=== PATIENT | male | born 1965 | race Caucasian/White ===

== ENCOUNTER 2017-05-03 14:08 | Inpatient (IN) | payer OTHER ==
[~2017-05-03] VITALS: Ht 172.7 cm; Wt 72.1 kg
[2017-05-03 15:21] LABS: HEMATOCRIT 32.2 % (38.0-50.0); MCH 30.1 PG (29.0-34.0); MCHC 33.2 G/DL (30.0-36.0); MCV 90.4 FL (86-99); MEAN PLAT.VOLUME 10.4 uM^3 (9.0-12.4); PLATELET COUNT 271 K/uL (156-360); RBC DIS.WIDTH-CV 13.3 % (11.8-14.6); RBC DIS.WIDTH-SD 44.2 % (39-53); RED BLOOD COUNT 3.56 M/uL (4.00-5.50); WHITE BLOOD COUNT 8.7 K/uL (4.1-10.2)
[2017-05-03 15:29] LABS: CHLORIDE 107 mEq/L (99-109); POTASSIUM 4.8 mEq/L (3.7-5.4); SODIUM 142 mEq/L (136-147)
[2017-05-03 15:30] LABS: GLUCOSE 171 mg/dL (70-99)
[2017-05-03 15:32] LABS: ANION GAP 12 MEQ/L (2-14)
[2017-05-03 15:34] LABS: GFR ESTIMATE (CALCULATED) 53 mL/min/
[2017-05-03 15:35] LABS: UREA NITROGEN (BUN) 37 mg/dL (9-23)
[2017-05-03 16:04] LABS: SAMPLE HEMOLYSIS CHECK 0; SAMPLE ICTERIC CHECK 0; SAMPLE LIPEMIA CHECK 0
[2017-05-03] MEDS ORDERED: BISA-LAX5 MG PO (16:41)
[2017-05-03] MEDS ORDERED: PROVENTIL,2.5 MG/3 M IH (16:42)
[2017-05-03] MEDS ORDERED: FERROUS SULFAT325 MG PO (16:42)
[2017-05-03] MEDS ORDERED: GLIPIZIDE5 MG PO (16:43)
[2017-05-03] MEDS ORDERED: HALOPERIDOL5 MG/1 M1 IM (16:44)
[2017-05-03] MEDS ORDERED: LISINOPRIL20 MG PO (16:45)
[2017-05-03] MEDS ORDERED: METFORMIN HCL500 MG PO (16:47)
[2017-05-03] MEDS ORDERED: THERA-M1 EACH PO (16:48)
[2017-05-03] MEDS ORDERED: VITAMIN B-1100 MG PO (16:48)
[2017-05-03] MEDS ORDERED: PAROXETINE HCL10 MG PO (16:48)
[2017-05-03] MEDS ORDERED: VALPROIC ACID250 MG PO (16:49)
[2017-05-03] MEDS ORDERED: QUETIAPINE FUM100 MG PO (16:50)
[2017-05-03] MEDS ORDERED: SIMVASTATIN40 MG PO (16:50)
[2017-05-03] MEDS ORDERED: PLAVIX75 MG PO (16:50)
[2017-05-03] MEDS ORDERED: FLOMAX0.4 MG PO (16:51)
[2017-05-03 17:33] LABS: HEMATOCRIT 31.5 % (38.0-50.0); MCH 29.7 PG (29.0-34.0); MEAN PLAT.VOLUME 10.5 uM^3 (9.0-12.4); PLATELET COUNT 244 K/uL (156-360); RBC DIS.WIDTH-CV 13.4 % (11.8-14.6); RBC DIS.WIDTH-SD 43.8 % (39-53); WHITE BLOOD COUNT 9.2 K/uL (4.1-10.2)
[2017-05-03 18:10] LABS: HDL CHOLESTEROL 34 MG/DL (Desirable>=40); LDL CHOLESTEROL 33 mg/dL (Desirable<100); NON-HDL CHOLESTEROL 49 mg/dL (Desirable<160); TOTAL CHOLESTEROL 83 mg/dL (Desirable<200); TRIGLYCERIDES 81 MG/DL (Normal: <150)
[2017-05-03 18:55] LABS: Estimated Average Glucose 189 mg/dL (70-123); HEMOGLOBIN A1c (GLYCOHEMOGLOB) 8.2 % HGB (Below 5.7)
[2017-05-03 19:12] LABS: ADD MIUA? YES; BILIRUBIN NEGATIVE; BLOOD NEGATIVE; COLOR AMBER ((YELLOW)); GLUCOSE (STRIP) NEGATIVE; KETONES 5; LEUKOCYTES MODERATE; NITRITE NEGATIVE; PROTEIN (STRIP) NEGATIVE; SPECIFIC GRAVITY 1.019 (1.000-1.030)
[2017-05-03 19:32] LABS: RED BLOOD CELLS 0-5 /HPF (0-5); WHITE BLOOD CELLS 15-20 /HPF (0-5)
[2017-05-03 19:33] LABS: BACTERIA NONE SEEN /HPF; CASTS PRESENT /LPF; CRYSTALS NONE SEEN; EPITHELIAL CELLS NONE SEEN /HPF; HYALINE CASTS 0-5 /LPF; MUCUS 2+ /LPF; UCUL ADDED? YES
[2017-05-03 19:47] VITALS: BP 128/60
[2017-05-03 22:08] LABS: POINT-OF-CARE METER ID UU13113717
[2017-05-03 23:23] LABS: POINT-OF-CARE METER ID UU13113717
[2017-05-03 23:58] VITALS: BP 172/77
[2017-05-04 04:03] VITALS: BP 184/80
[2017-05-04 04:39] LABS: POINT-OF-CARE METER ID UU13113717
[2017-05-04 05:44] LABS: METH RESISTANT S AUREUS PCR POSITIVE (NEGATIVE); PROBE CHECK PASS
[2017-05-04 06:32] VITALS: BP 148/70
[2017-05-04 06:47] LABS: POINT-OF-CARE METER ID UU14174225
[2017-05-04 12:33] LABS: POINT-OF-CARE METER ID UU13113717
[2017-05-04 12:35] VITALS: BP 81/47
[2017-05-04 13:14] VITALS: BP 158/72
[2017-05-04 16:03] LABS: ANION GAP 5 MEQ/L (2-14); CHLORIDE 104 MEQ/L (99-109); GFR ESTIMATE (CALCULATED) > 59 mL/min/; GLUCOSE 204 mg/dL (70-99); POTASSIUM 4.3 MEQ/L (3.7-5.4); SAMPLE HEMOLYSIS CHECK 0; SAMPLE ICTERIC CHECK 0; SAMPLE LIPEMIA CHECK 0; SODIUM 136 MEQ/L (136-147); UREA NITROGEN (BUN) 22 mg/dL (9-23)
[2017-05-04 18:24] LABS: POINT-OF-CARE METER ID UU13113717
[2017-05-04 19:45] VITALS: BP 149/79
[2017-05-04 21:50] LABS: POINT-OF-CARE METER ID UU13113717
[2017-05-04 23:36] LABS: POINT-OF-CARE METER ID UU14174225
[2017-05-05 00:25] VITALS: BP 155/72
[2017-05-05 04:54] LABS: POINT-OF-CARE METER ID UU14174225
[2017-05-05 08:02] VITALS: BP 138/75
== END 2017-05-05 14:10 | DRG 948 ==
LOC: EME 14:08 → EDOF 16:25 → 5SOUTH 16:25 → ENRESERV 16:27 → 5SOUTH 19:34 → ENPENDDIS 05-05 → 5SOUTH 05-05 14:10
PROVIDERS: Emergency Medicine; Hospitalist; Physician Assistant Medical
DX: R53.83 Other fatigue (principal); T43.4X5A Adverse effect of butyrophenone and thiothixene neuroleptics, initial encounter; T42.4X5A Adverse effect of benzodiazepines, initial encounter; N17.9 Acute kidney failure, unspecified; E86.0 Dehydration; I69.391 Dysphagia following cerebral infarction; R13.10 Dysphagia, unspecified; I69.398 Other sequelae of cerebral infarction; H54.7 Unspecified visual loss; R25.1 Tremor, unspecified; E11.9 Type 2 diabetes mellitus without complications; E78.5 Hyperlipidemia, unspecified; F20.9 Schizophrenia, unspecified; F31.9 Bipolar disorder, unspecified; F43.10 Post-traumatic stress disorder, unspecified; I10 Essential (primary) hypertension; N40.1 Benign prostatic hyperplasia with lower urinary tract symptoms; R33.8 Other retention of urine; F41.9 Anxiety disorder, unspecified; K59.00 Constipation, unspecified; Z87.820 Personal history of traumatic brain injury; Z79.02 Long term (current) use of antithrombotics/antiplatelets
CPT/HCPCS: 70450; 70551; 71010; 80048; 80061; 80164; 81003; 82948; 83036; 83605; 85027; 87040; 87077; 87086; 87186; 87641; 92610 GN; 93880; 94760; 99202; 99281; 99285; J1650; J1815; J7030

== ENCOUNTER → 2017-05-13 | Outpatient (CLI) | payer OTHER ==
[~2017-05-13] MED LIST: BISA-LAX5 MG PO; FERROUS SULFAT325 MG PO; FLOMAX0.4 MG PO; GLIPIZIDE5 MG PO; HALOPERIDOL5 MG/1 M1 IM; LISINOPRIL20 MG PO; METFORMIN HCL500 MG PO; PAROXETINE HCL10 MG PO; PLAVIX75 MG PO; PROVENTIL,2.5 MG/3 M IH; QUETIAPINE FUM100 MG PO; SIMVASTATIN40 MG PO; THERA-M1 EACH PO; VALPROIC ACID250 MG PO; VITAMIN B-1100 MG PO
== END | disposition designated cancer center or children's hospital (05) ==
LOC: RAD 13:26
DX: I69.991 Dysphagia following unspecified cerebrovascular disease (principal); R13.12 Dysphagia, oropharyngeal phase
CPT/HCPCS: 74230; 92611 GN; G8996 GN CK; G8997 GN CK; G8998 GN CK

== ENCOUNTER → 2017-07-28 | Outpatient (CLI) | payer OTHER | END | disposition designated cancer center or children's hospital (05) | LOC: AMB 10:11 | PROC: 0HJPXZZ Inspection of Skin, External Approach (ICD-10-PCS; principal; 2017-07-28) | DX: L05.92 Pilonidal sinus without abscess (principal); Z74.01 Bed confinement status | CPT/HCPCS: 99211 ==

== ENCOUNTER 2017-08-04 07:50 | Day surgery (SDC) | payer OTHER ==
[~2017-08-04] VITALS: Ht 172.7 cm; Wt 65.7 kg
[~2017-08-04 07:50] MED LIST changes: -FERROUS SULFAT325 MG PO; +GLUCOPHAGE500 MG GT; +IRON325 M1 PO; +KRISTALOSE10 GM PO; -LISINOPRIL20 MG PO; +METFORMIN HCL500 MG GT; -METFORMIN HCL500 MG PO; +MOTRIN400 MG GT; +PLAVIX75 MG GT; -PLAVIX75 MG PO; +SIMVASTATIN40 MG GT; -SIMVASTATIN40 MG PO; +STOOL SOFTENER100 M1 GT; +VALPROIC ACID250 MG GT; -VALPROIC ACID250 MG PO; +ZESTRIL10 MG GT; +ZYPREXA10 MG GT
[2017-08-04 08:54] VITALS: BP 106/58
[2017-08-04 09:20] LABS: CHLORIDE 106 MEQ/L (99-109); CREATININE 0.9 MG/DL (0.6-1.3); GFR ESTIMATE (CALCULATED) > 59 mL/min/ (58.99-99999); GLUCOSE 99 mg/dL (70-99); POTASSIUM 4.8 MEQ/L (3.7-5.4); SODIUM 144 MEQ/L (136-147); UREA NITROGEN (BUN) 23 mg/dL (9-23)
[2017-08-04 12:05] VITALS: BP 122/73
[2017-08-04 12:50] VITALS: BP 115/63
[2017-08-05] MEDS ORDERED: LEVAQUIN750 MG GT (14:33)
[2017-08-05] MEDS ORDERED: HALOPERIDOL5 MG/1 M1 IM (14:35)
== END 2017-08-04 13:05 | disposition designated cancer center or children's hospital (05) ==
LOC: SDC 07:50
PROVIDERS: Surgery
PROC: 0DH63UZ Insertion of Feeding Device into Stomach, Percutaneous Approach (ICD-10-PCS; principal; 2017-08-04)
DX: I69.391 Dysphagia following cerebral infarction (principal); R13.10 Dysphagia, unspecified; E11.9 Type 2 diabetes mellitus without complications; Z79.84 Long term (current) use of oral hypoglycemic drugs; E78.5 Hyperlipidemia, unspecified; Z88.5 Allergy status to narcotic agent
CPT/HCPCS: 80048; 82948; 87641; 93005; J0690; J2405; J2765; J3010

== ENCOUNTER 2017-08-05 11:43 | Inpatient (IN) | payer OTHER ==
[~2017-08-05] VITALS: Ht 172.7 cm; Wt 69.0 kg
[2017-08-05 12:19] LABS: BASOPHIL (%) 0 % (0-1); EOSINOPHIL (%) 0.3 % (0-5); HEMATOCRIT 30.9 % (38.0-50.0); HEMOGLOBIN 10.5 G/DL (12.5-16.6); IMMATURE GRANULOCYTE (%) 0.4 % (0.0-0.7); LYMPHOCYTE (%) 19.8 % (15-42); LYMPHOCYTE COUNT 1.5 K/uL (1.0-2.8); MCH 30.3 PG (29.0-34.0); MCV 89.3 FL (86-99); MONOCYTE (%) 9.9 % (3-12); MONOCYTE COUNT 0.7 K/uL (0-0.8); NEUTROPHIL (%) 69.6 % (45-76); NEUTROPHIL COUNT 5.2 K/uL (1.8-6.4); PLATELET COUNT 170 K/uL (156-360); RBC DIS.WIDTH-CV 14.8 % (11.8-14.6); RBC DIS.WIDTH-SD 47.4 % (39-53); RED BLOOD COUNT 3.46 M/uL (4.00-5.50); WHITE BLOOD COUNT 7.5 K/uL (4.1-10.2)
[2017-08-05 12:28] LABS: ALBUMIN 3.2 g/dL (3.2-4.8); CHLORIDE 104 mEq/L (99-109); POTASSIUM 4.9 mEq/L (3.7-5.4); SODIUM 141 mEq/L (136-147)
[2017-08-05 12:30] LABS: GLUCOSE 113 mg/dL (70-99); TOTAL PROTEIN 6.3 g/dL (6.4-8.3)
[2017-08-05 12:32] LABS: TOTAL BILIRUBIN 0.3 mg/dL (0.0-1.0)
[2017-08-05 12:34] LABS: ALKALINE PHOSPHATASE 54 IU/L (3-129); GFR ESTIMATE (CALCULATED) 36 mL/min/ (58.99-99999)
[2017-08-05 12:36] LABS: AST (GOT) 15 IU/L (2-34)
[2017-08-05 12:37] LABS: ALT (GPT) 13 IU/L (3-49); LIPASE 19 U/L (1.0-51.0)
[2017-08-05 12:38] LABS: INTER. NORMALIZED RATIO 1.1
[2017-08-05 12:39] LABS: CREATININE 2.1 mg/dL (0.6-1.3); UREA NITROGEN (BUN) 42 mg/dL (9-23)
[2017-08-05 12:41] LABS: PTT 26.7 SEC (25-37); TROP-I INTERPRETATION NEGATIVE; TROPONIN-I < 0.01 ng/mL (0.0-0.30)
[2017-08-05] MEDS ORDERED: LEVAQUIN750 MG GT (14:33)
[2017-08-05] MEDS ORDERED: HALOPERIDOL5 MG/1 M1 IM (14:35)
[2017-08-05 16:34] LABS: APPEARANCE CLEAR ((CLEAR)); BILIRUBIN NEGATIVE; BLOOD NEGATIVE; COLOR YELLOW ((YELLOW)); GLUCOSE (STRIP) NEGATIVE; KETONES 5; LEUKOCYTES NEGATIVE; NITRITE NEGATIVE; PROTEIN (STRIP) NEGATIVE; SPECIFIC GRAVITY 1.021 (1.000-1.030); UCUL ADDED? NO
[2017-08-05 20:40] VITALS: BP 116/70
[2017-08-06 06:43] LABS: HEMATOCRIT 27.5 % (38.0-50.0); HEMOGLOBIN 8.9 G/DL (12.5-16.6); MCHC 32.4 G/DL (30.0-36.0); MCV 89.6 FL (86-99); PLATELET COUNT 166 K/uL (156-360); RBC DIS.WIDTH-CV 14.9 % (11.8-14.6); RED BLOOD COUNT 3.07 M/uL (4.00-5.50); WHITE BLOOD COUNT 6.6 K/uL (4.1-10.2)
[2017-08-06 07:03] LABS: CHLORIDE 106 MEQ/L (99-109); GLUCOSE 106 mg/dL (70-99); POTASSIUM 4.1 MEQ/L (3.7-5.4); SODIUM 143 MEQ/L (136-147); UREA NITROGEN (BUN) 21 mg/dL (9-23)
[2017-08-06 07:04] LABS: GFR ESTIMATE (CALCULATED) > 59 mL/min/ (58.99-99999)
[2017-08-06 07:05] VITALS: BP 144/67
[2017-08-06 11:10] VITALS: BP 119/56
[2017-08-06 15:16] VITALS: BP 126/68
[2017-08-06 20:07] VITALS: BP 126/72
[2017-08-06 23:51] VITALS: BP 148/89
[2017-08-07 03:50] VITALS: BP 122/67
[2017-08-07 06:45] LABS: BASOPHIL (%) 0 % (0-1); HEMATOCRIT 27.3 % (38.0-50.0); HEMOGLOBIN 8.9 G/DL (12.5-16.6); IMMATURE GRANULOCYTE (%) 0.2 % (0.0-0.7); LYMPHOCYTE (%) 32.8 % (15-42); LYMPHOCYTE COUNT 1.3 K/uL (1.0-2.8); MCH 29.6 PG (29.0-34.0); MCHC 32.6 G/DL (30.0-36.0); MCV 90.7 FL (86-99); MONOCYTE (%) 14.8 % (3-12); MONOCYTE COUNT 0.6 K/uL (0-0.8); NEUTROPHIL (%) 51.2 % (45-76); NEUTROPHIL COUNT 2.1 K/uL (1.8-6.4); PLATELET COUNT 133 K/uL (156-360); RBC DIS.WIDTH-CV 14.8 % (11.8-14.6); RBC DIS.WIDTH-SD 49.2 % (39-53); RED BLOOD COUNT 3.01 M/uL (4.00-5.50); WHITE BLOOD COUNT 4.1 K/uL (4.1-10.2)
[2017-08-07 07:11] LABS: CHLORIDE 110 MEQ/L (99-109); CREATININE 0.8 MG/DL (0.6-1.3); GFR ESTIMATE (CALCULATED) > 59 mL/min/ (58.99-99999); GLUCOSE 129 mg/dL (70-99); MAGNESIUM 1.8 mg/dl (1.3-2.7); POTASSIUM 3.8 MEQ/L (3.7-5.4); SODIUM 145 MEQ/L (136-147); UREA NITROGEN (BUN) 13 mg/dL (9-23)
[2017-08-07 08:09] VITALS: BP 123/62
[2017-08-07 12:46] LABS: HEMOGLOBIN A1c (GLYCOHEMOGLOB) 6.9 % (Below 5.7)
[2017-08-07 19:21] VITALS: BP 134/89
[2017-08-07 23:00] VITALS: BP 145/75
[2017-08-08 04:00] VITALS: BP 116/56
[2017-08-08 06:27] LABS: BASOPHIL (%) 0.3 % (0-1); EOSINOPHIL (%) 1.6 % (0-5); EOSINOPHIL COUNT 0.1 K/uL (0-0.3); HEMATOCRIT 27.2 % (38.0-50.0); IMMATURE GRANULOCYTE (%) 0.3 % (0.0-0.7); LYMPHOCYTE (%) 33.4 % (15-42); LYMPHOCYTE COUNT 1.3 K/uL (1.0-2.8); MCH 29.5 PG (29.0-34.0); MCHC 33.1 G/DL (30.0-36.0); MCV 89.2 FL (86-99); MONOCYTE (%) 15.1 % (3-12); MONOCYTE COUNT 0.6 K/uL (0-0.8); NEUTROPHIL (%) 49.3 % (45-76); NEUTROPHIL COUNT 1.9 K/uL (1.8-6.4); RBC DIS.WIDTH-CV 14.7 % (11.8-14.6); RBC DIS.WIDTH-SD 47.2 % (39-53); RED BLOOD COUNT 3.05 M/uL (4.00-5.50); WHITE BLOOD COUNT 3.8 K/uL (4.1-10.2)
[2017-08-08 06:45] VITALS: BP 131/95
[2017-08-08 06:58] LABS: CHLORIDE 108 MEQ/L (99-109); CREATININE 0.7 MG/DL (0.6-1.3); GFR ESTIMATE (CALCULATED) > 59 mL/min/ (58.99-99999); GLUCOSE 162 mg/dL (70-99); POTASSIUM 3.6 MEQ/L (3.7-5.4); SODIUM 145 MEQ/L (136-147); UREA NITROGEN (BUN) 12 mg/dL (9-23)
[2017-08-08 07:22] LABS: PLAT.SUFFICIENCY ADEQUATE; PLATELET COUNT 149 K/uL (156-360)
[2017-08-08 11:00] VITALS: BP 168/72
[2017-08-08 15:30] VITALS: BP 164/78
[2017-08-08] MEDS ORDERED: Tylenol GT (15:50)
== END 2017-08-08 18:56 | DRG 178 ==
LOC: EME 11:43 → 5EAST 16:15 → EDOF 16:15 → ENRESERV 16:16 → 5EAST 19:18
PROVIDERS: Emergency Medicine; Hospitalist; Internal Medicine; Physician Assistant
PROC: 0DH63UZ Insertion of Feeding Device into Stomach, Percutaneous Approach (ICD-10-PCS; principal; 2017-08-04)
DX: J69.0 Pneumonitis due to inhalation of food and vomit (principal); N17.9 Acute kidney failure, unspecified; E86.0 Dehydration; R13.10 Dysphagia, unspecified; J98.11 Atelectasis; Z93.1 Gastrostomy status; I69.398 Other sequelae of cerebral infarction; F01.51 Vascular dementia, unspecified severity, with behavioral disturbance; I10 Essential (primary) hypertension; E11.9 Type 2 diabetes mellitus without complications; E78.5 Hyperlipidemia, unspecified; N40.0 Benign prostatic hyperplasia without lower urinary tract symptoms; F20.9 Schizophrenia, unspecified; F43.10 Post-traumatic stress disorder, unspecified; H54.8 Legal blindness, as defined in USA; M54.9 Dorsalgia, unspecified; R04.2 Hemoptysis; R26.9 Unspecified abnormalities of gait and mobility; R53.1 Weakness; K58.9 Irritable bowel syndrome, unspecified; F41.9 Anxiety disorder, unspecified
CPT/HCPCS: 71045; 71250; 74176; 80048; 80053; 80164; 80202; 81003; 82948; 83036; 83605; 83690; 83735; 84484; 85025; 85027; 85610; 85730; 87040; 87641; 92610 GN; 93005; 94799; 99281; 99285; J0295; J0456; J0690; J1200; J1815; J2060; J2405; J2543; J2765; J3010; J3370; J7030; J7050

== ENCOUNTER → 2017-08-27 | Outpatient (CLI) | payer OTHER ==
[~2017-08-27] MED LIST changes: +LEVAQUIN750 MG GT; +Tylenol GT
== END ==
LOC: MRI 13:24 → RAD 13:30 → MRI 13:30
DX: R94.02 Abnormal brain scan (principal)
CPT/HCPCS: 70551